=== PATIENT | female | born 1955 | race Caucasian/White ===

== ENCOUNTER 2016-12-08 13:41 | Emergency (ER) | payer MEDICAID, OTHER ==
[~2016-12-08] VITALS: Ht 165.1 cm; Wt 72.0 kg
[~2016-12-08 13:41] MED LIST: CEPH-443 PO; IBUP-1542 PO
[2016-12-08 13:44] VITALS: Ht 165.1 cm; Wt 72.0 kg
[2016-12-08] MEDS ORDERED: CETI10CA PO (14:47)
[2016-12-08] MEDS ORDERED: ERYTOPOI BOTH EYES (14:48)
[2016-12-08] MEDS ORDERED: PRED20TA PO (14:48)
[2016-12-08] MEDS ORDERED: ACET500C5 PO (14:49)
--- NOTE | 2016-12-08 15:20 | ERD ---
ER Documentation Chief Complaint Date/Time DATE: 12/08/16 TIME: 15:11 Chief Complaint Complains of eye redness and itching to both eye lids HPI This is a 61-year-old female who presents the emergency department with itching and redness to her bilateral lower eyelids 1 month. She states that the redness is spreading downwards. Patient does report using a new "lunes moisturizer" and "lavender facial bar soap" over the last few weeks. She denies any blurry vision, loss of vision or contact lens use. Patient denies any eye pain. Patient denies fever, chill, chest pain, headache, shortness of breath, nausea, vomiting or LOC. ROS All systems reviewed and are negative except as per history of present illness. Medications Home Meds Active Scripts Acetaminophen* (Tylophen*) 500 Mg Capsule, 1 CAP PO Q6H Y for PAIN AND OR ELEVATED TEMP, #20 CAP Prov:SABRINA BIGGS PA-C 12/08/16 Erythromycin* (Erythromycin* Ophthalmic) 1 Applic Oint, 1 APPLIC BOTH EYES QID for 7 Days, EA Prov:SABRINA BIGGS PA-C 12/08/16 Prednisone* (Prednisone*) 20 Mg Tab, 40 MG PO DAILY for 5 Days, TAB Prov:SABRINA BIGGS PA-C 12/08/16 Cetirizine Hcl* (Zyrtec*) 10 Mg Capsule, 10 MG PO DAILY, #10 TAB.CHEW Prov:SABRINA BIGGS PA-C 12/08/16 Ibuprofen* (Motrin*) 600 Mg Tab, 600 MG PO TID for PAIN AND/OR INFLAMMATION, # 30 TAB Prov:ARBAHAN KELSEY MD 10/24/15 Cephalexin* (Keflex*) 500 Mg Capsule, 500 MG PO QID for 5 Days, CAP Prov:ABRAHAN KELSEY MD 10/24/15 Allergies Allergies: Coded Allergies: No Known Allergy (Unverified , 10/24/15) PMhx/Soc History of Surgery: No Anesthesia Reaction: No Hx Neurological Disorder: No Hx Respiratory Disorders: No Hx Psychiatric Problems: No Hx Miscellaneous Medical Probl: No Hx Alcohol Use: No Hx Substance Use: No Hx Tobacco Use: No FmHx Family History: No diabetes Physical Exam Vitals Vital Signs Date Time Temp Pulse Resp B/P Pulse Ox O2 Delivery O2 Flow Rate FiO2 12/08/16 13:44 98.0 83 20 161/83 96 Physical Exam GENERAL: Well-developed, well-nourished female. Appears in no acute distress. HEAD: Normocephalic, atraumatic. EYES: Pupils are equally reactive bilaterally. EOMs grossly intact. Right lower eyelids erythematous and slightly swollen. No conjunctival erythema. OS: 20/40, OD: 20/40, OU: 20/40 ENT: Moist mucous membranes. No uvula deviation. No kissing tonsils. NECK: Supple. No meningismus. Normal range of motion of the neck. LUNG: Clear to auscultation bilaterally. No rhonchi, wheezing, rales or coarse breath sounds. HEART: Regular rate and rhythm. No murmurs, rubs or gallops. BACK: No midline tenderness. EXTREMITIES: Equal pulses bilaterally. No peripheral clubbing, cyanosis or edema. No unilateral leg swelling. NEUROLOGIC: Alert and oriented. Moving all four extremities without any difficulty. Normal speech. Steady gait. SKIN: Normal color. Warm and dry. No rashes or lesions. Procedures/MDM MEDICAL DECISION MAKING: This is a 61-year-old female who presents with bilateral erythema and itching to her lower eyelids 1 month. Patient denied any blurry vision or LOC. Patient does report using an new eye lotion and a lavender facial soap bar. Vital signs were reviewed. Patient was afebrile. Patient's vision was grossly intact. Given these findings, the patient's presentation is most consistent with contact dermatitis. I will treat the patient prophylactically with antibiotics. I have a much lower clinical concern for allergic conjunctivitis, corneal abrasion, corneal ulcer, retained eye foreign body, glaucoma, periorbital cellulitis, orbital cellulitis, hordeolum, dacrycystitis. PRESCRIPTIONS: Zyrtec, Tylenol, Prednisone, Erythromycin ointment DISCHARGE: At this time, patient is stable for discharge and outpatient management. Supportive measures were discussed with patient including cool compresses. Patient advised not to wear contact lenses or eye makeup. I have instructed the patient to follow-up with his/her primary care physician in 1-2 days. I have discussed with the patient the possibility of needing to see an business services specialist sales for further workup if symptoms persist. I have instructed the patient to promptly return to the ER for any new or worsening symptoms including increased pain, fever, swelling, redness, warmth, nausea, vomiting. The patient and/or family expressed understanding of and agreement with this plan. All questions were answered. Home care instructions were provided. Patient's blood pressure was elevated (>120/80) but appears stable without evidence of hypertensive emergency, hypertensive urgency or end-organ failure. I had discussion with the patient about the risks of hypertension. I have advised the patient to follow up with his/her primary care physician for outpatient monitoring and treatment for hypertension in 2-3 days. I have instructed the patient to return to the ER for any new or worsening symptoms including chest pain, shortness of breath, headache, blurred vision, confusion, nausea, vomiting or LOC. Departure Diagnosis: Primary Impression: Contact dermatitis Contact dermatitis type: allergic Contact dermatitis trigger: unspecified trigger Qualified Code: L23.9 - Allergic contact dermatitis, unspecified trigger Additional Impression: Bacterial conjunctivitis Patient Instructions: Contact Dermatitis Referrals: COUNT INCLUDES THE [facility] YOU HAVE RECEIVED A MEDICAL SCREENING EXAM AND THE RESULTS INDICATE THAT YOU DO NOT HAVE A CONDITION THAT REQUIRES URGENT TREATMENT IN THE EMERGENCY DEPARTMENT. FURTHER EVALUATION AND TREATMENT OF YOUR CONDITION CAN WAIT UNTIL YOU ARE SEEN IN YOUR DOCTORS OFFICE WITHIN THE NEXT 1-2 DAYS. IT IS YOUR RESPONSIBILITY TO MAKE AN APPOINTMENT FOR FOLOW-UP CARE. IF YOU HAVE A PRIMARY DOCTOR --you should call your primary doctor and schedule an appointment IF YOU DO NOT HAVE A PRIMARY DOCTOR YOU CAN CALL OUR PHYSICIAN REFERRAL HOTLINE AT IF YOU CAN NOT AFFORD TO SEE A PHYSICIAN YOU CAN CHOSE FROM THE FOLLOWING [facility] CLINICS [facility] [address] [facility] [address] [facility] [facility] [address] [facility] [address] [facility] [address] [facility] [facility]. [address] [facility]. [facility] YOU HAVE RECEIVED A MEDICAL SCREENING EXAM AND THE RESULTS INDICATE THAT YOU DO NOT HAVE A CONDITION THAT REQUIRES URGENT TREATMENT IN THE EMERGENCY DEPARTMENT. FURTHER EVALUATION AND TREATMENT OF YOUR CONDITION CAN WAIT UNTIL YOU ARE SEEN IN YOUR DOCTORS OFFICE WITHIN THE NEXT 1-2 DAYS. IT IS YOUR RESPONSIBILITY TO MAKE AN APPOINTMENT FOR FOLOW-UP CARE. IF YOU HAVE A PRIMARY DOCTOR --you should call your primary doctor and schedule and appointment IF YOU DO NOT HAVE A PRIMARY DOCTOR YOU CAN CALL OUR PHYSICIAN REFERRAL HOTLINE AT . IF YOU CAN NOT AFFORD TO SEE A PHYSICIAN YOU CAN CHOSE FROM THE FOLLOWING [facility], [facility] INSTITUTIONS: [facility] [address] [place] [address] [facility] [address] [place] [address] [facility] [address] [place] [address] [facility] Hours: Mon - Fri 9:00 AM - 5:00 PM Additional Instructions: Call your primary care doctor TOMORROW for an appointment during the next 1-2 days.See the doctor sooner or return here if your condition worsens before your appointment time. Avoid using any eye creams or lotions. Follow with business services specialist sales for full eye exam and for any new or worsening symptoms. SABRINA BIGGS PA-C Dec 08, 2016 15:19
== END 2016-12-08 15:14 | disposition home or self-care (01) ==
LOC: FTE 13:41
DX: L23.9 Allergic contact dermatitis, unspecified cause (principal); H10.023 Other mucopurulent conjunctivitis, bilateral
CPT/HCPCS: 99284

== ENCOUNTER 2019-01-03 11:25 | Emergency (ER) | payer OTHER ==
[~2019-01-03] VITALS: Ht 157.5 cm; Wt 71.6 kg
[~2019-01-03 11:25] MED LIST changes: +ACET500C5 PO; +CETI10CA PO; +ERYTOPOI BOTH EYES; +PRED20TA PO
[2019-01-03 11:30] VITALS: BP 166/74; PULSE 82; RESP 18; Ht 157.5 cm; Wt 71.6 kg
[2019-01-03] MEDS ORDERED: LEVO5TAB28 PO (12:18)
[2019-01-03] MEDS ORDERED: KETO5DRO71 OP (12:18)
--- NOTE | 2019-01-03 12:28 | ERD ---
ER Documentation Chief Complaint Chief Complaint C/O BILATERAL EYE DRYNESS, REDNESS AND ITCHING FOR FEW MONTHS HPI 63-year-old female presenting with bilateral eye irritation and itching around her eyes. Patient denies any visual changes and wears glasses but no contacts. Says is been going on for the last 2 months. Tried putting gentamicin in her eyes with no alleviation. Denies other medical problems. NKDA. Surgical history denies. Social history denies ROS All systems reviewed and are negative except as per history of present illness. Medications Home Meds Active Scripts Levocetirizine Dihydrochloride (Xyzal) 5 Mg Tablet, 5 MG PO QPM, #30 TAB Prov:TONIO HERNANDEZ PA-C 01/03/19 Ketotifen Fumarate (ZADITOR) 5 Ml Drops, 5 ML OP DAILY, #1 BOTTLE Prov:TONIO HERNANDEZ PA-C 01/03/19 Acetaminophen* (Tylophen*) 500 Mg Capsule, 1 CAP PO Q6H PRN for PAIN AND OR ELEVATED TEMP, #20 CAP Prov:SABRINA BIGGS PA-C 12/08/16 Erythromycin* (Erythromycin* Ophthalmic) 1 Applic Oint, 1 APPLIC BOTH EYES QID for 7 Days, EA Prov:SBARINA BIGGS PA-C 12/08/16 Prednisone* (Prednisone*) 20 Mg Tab, 40 MG PO DAILY for 5 Days, TAB Prov:SABRINA BIGGS PA-C 12/08/16 Cetirizine Hcl* (Zyrtec*) 10 Mg Capsule, 10 MG PO DAILY, #10 TAB.CHEW Prov:SABRINA BIGGS PA-C 12/08/16 Ibuprofen* (Motrin*) 600 Mg Tab, 600 MG PO TID for PAIN AND/OR INFLAMMATION, #30 TAB Prov:ABRAHAN KELSEY MD 10/24/15 Cephalexin* (Keflex*) 500 Mg Capsule, 500 MG PO QID for 5 Days, CAP Prov:ABRAHAN KELSEY MD 10/24/15 Allergies Allergies: Coded Allergies: No Known Allergy (Unverified , 10/24/15) PMhx/Soc History of Surgery: Yes Anesthesia Reaction: No Hx Neurological Disorder: No Hx Respiratory Disorders: No Hx Psychiatric Problems: No Hx Miscellaneous Medical Probl: Yes (hx heart attack) Hx Alcohol Use: No Hx Substance Use: No Hx Tobacco Use: No Smoking Status: Never smoker FmHx Family History: No diabetes, No coronary disease, No other Physical Exam Vitals Vital Signs Date Temp Pulse Resp B/P (MAP) Pulse Ox O2 O2 Flow FiO2 Time Delivery Rate 01/03/19 98.3 82 18 166/74 97 11:30 (104) Physical Exam GENERAL: The patient is well-appearing, well-nourished, in no acute distress HEENT: Atraumatic. Conjunctivae are pink. Pupils equal, round, and reactive to light. Mild injection noted of the sclera. No surrounding erythema or purulence.. Tympanic membranes clear bilaterally. Oropharynx clear. NECK: C-spine is soft and supple. There is no meningismus. There is no cervical lymphadenopathy. CHEST: Clear to auscultation bilaterally. There are no rales, wheezes or rhonchi. HEART: Regular rate and rhythm. No murmurs, clicks, rubs or gallops. Procedures/MDM MDM: 63-year-old female presenting with eye irritation. Patient's exam is likely concerning for allergic conjunctivitis. I have low suspicion for bacterial conjunctivitis. Patient is discharged with supportive medications and told to follow-up with primary care within 1 to 2 days for close evaluation. Patient is told symptoms change or worsen to return immediately to the ER. All questions answered at discharge Departure Diagnosis: Primary Impression: Allergic conjunctivitis Condition: Stable Patient Instructions: Conjunctivitis, Allergic Referrals: LOCATED WITHIN [facility] Hours: Mon - Fri 9:00 AM - 5:00 PM Additional Instructions: FOLLOW UP WITH YOUR PRIMARY CARE PHYSICIAN TOMORROW.Return to this facility if you are not improving as expected. TONIO HERNANDEZ PA-C Jan 03, 2019 12:28
== END 2019-01-03 12:25 | disposition home or self-care (01) ==
LOC: FTE 11:25
DX: H10.13 Acute atopic conjunctivitis, bilateral (principal)
CPT/HCPCS: 99283